=== PATIENT | male | born 1990 | race Caucasian/White ===

== ENCOUNTER 2025-03-08 21:24 | Emergency (ER) | payer MEDICAID, OTHER ==
[~2025-03-08] VITALS: Ht 175.3 cm; Wt 97.5 kg
[2025-03-08] MEDS ORDERED: MORPHINE SULFATE INJ 4 MG/ML DISP.SYRIN ONE (21:47)
[2025-03-08] MEDS ORDERED: ONDANSETRON HCL/PF 4 MG/2 ML VIAL ONE (21:47)
[2025-03-08] MEDS: ONDANSETRON HCL/PF 4 MG/2 ML VIAL IV ONE (21:49)
[2025-03-08] MEDS: MORPHINE SULFATE INJ 2 MG/ML DISP.SYRIN IV ONE (21:49)
[2025-03-08] MEDS: IV NS 0.9% 1,000 ML BAG IV ONE (21:49)
[2025-03-08 22:21] LABS: BASOPHILS % (AUTO) 0.2 % (0.0-2.0); EOSINOPHILS % (AUTO) 0.2 % (0.0-6.0); HEMATOCRIT 45 % (39-51); HEMOGLOBIN 15.1 g/dL (13.5-17.5); LYMPHOCYTES # (AUTO) 2.8 K/uL (0.8-4.8); MEAN CORPUSCULAR HEMOGLOBIN 30 PG (26.0-33.0); MEAN CORPUSCULAR HGB CONC 34 g/dl (31.0-36.0); MEAN CORPUSCULAR VOLUME 90 fL (80-96); MONOCYTES # (AUTO) 0.9 K/uL (0.1-1.30); NEUTROPHILS # (AUTO) 17.8 K/uL (1.8-8.9); NEUTROPHILS % (AUTO) 82.6 % (43.0-81.0); PLATELET COUNT (AUTO) 338 K/uL (150-450); RED BLOOD CELL COUNT(AUTO) 4.99 MIL/uL (4.5-6.0); RED CELL DISTRIBUTION WIDTH 13.3 % (11.5-15.0); WHITE BLOOD COUNT (AUTO) 21.6 K/uL (4.3-11.0)
[2025-03-08 22:25] LABS: CALCIUM, SERUM 9.9 mg/dL (8.5-10.1); POTASSIUM 3.5 mmol/L (3.5-5.1)
[2025-03-08 22:31] LABS: ALBUMIN 4.4 g/dL (3.4-5.0); BILIRUBIN,DIRECT 0.1 mg/dL (0.0-0.2); BILIRUBIN,TOTAL 0.5 mg/dL (0.2-1.0); TOTAL PROTEIN, SERUM 8.4 g/dL (6.4-8.2)
[2025-03-08] MEDS ORDERED: DICYCLOMINE HCL 10 MG CAPSULE PO ONE (22:43)
[2025-03-08] MEDS ORDERED: KETOROLAC TROMETHAMINE 15 MG/ML VIAL ONE (22:43)
[2025-03-08] MEDS ORDERED: FAMOTIDINE/PF INJ 20 MG/2 ML VIAL IV ONE (22:44)
[2025-03-08] MEDS: DICYCLOMINE HCL 10 MG CAPSULE PO ONE (22:46)
[2025-03-08] MEDS: KETOROLAC TROMETHAMINE 15 MG/ML VIAL IV ONE (22:46)
[2025-03-08] MEDS: FAMOTIDINE/PF INJ 20 MG/2 ML VIAL IV ONE (22:46)
[2025-03-09] MEDS ORDERED: PANT40TA49 PO (00:15)
[2025-03-09] MEDS ORDERED: ONDA4TAB5 PO (00:15)
[2025-03-09] MEDS ORDERED: DICY10CA37 PO (00:15)
[2025-03-09] MEDS ORDERED: AMOX-430 PO (00:15)
[2025-03-09 00:43] VITALS: BP 114/65; TEMP 98; O2SAT 98
== END 2025-03-09 00:49 | disposition home or self-care (01) ==
LOC: ER 21:26
DX: R10.33 Periumbilical pain (principal); R11.2 Nausea with vomiting, unspecified; Z60.2 Problems related to living alone
CPT/HCPCS: 99285; 96374; 96361; 96375; 74176; 85025; 80048; 83690; 80076; 36415; J2270; J1308; J2405; J7030; J1885

== ENCOUNTER 2025-03-10 12:36 | Inpatient (IN) | payer OTHER, MEDICAID ==
[~2025-03-10] VITALS: Ht 175.3 cm; Wt 88.9 kg
[~2025-03-10 12:36] MED LIST: AMOX-430 PO; DICY10CA37 PO; ONDA4TAB5 PO; PANT40TA49 PO
[2025-03-10] MEDS ORDERED: KETOROLAC TROMETHAMINE 15 MG/ML VIAL ONE (12:57)
[2025-03-10] MEDS ORDERED: ONDANSETRON HCL/PF 4 MG/2 ML VIAL ONE (12:57)
[2025-03-10] MEDS: IV NS 0.9% 1,000 ML BAG IV ONE (13:00)
[2025-03-10] MEDS: ONDANSETRON HCL/PF 4 MG/2 ML VIAL IVP ONE (13:00)
[2025-03-10] MEDS: MORPHINE SULFATE INJ 2 MG/ML DISP.SYRIN IV ONE (13:00)
[2025-03-10] MEDS: KETOROLAC TROMETHAMINE 15 MG/ML VIAL IV ONE (13:00)
[2025-03-10 13:09] LABS: BASOPHILS # (AUTO) 0.1 K/uL (0.0-0.2); BASOPHILS % (AUTO) 0.5 % (0.0-2.0); EOSINOPHILS % (AUTO) 0.1 % (0.0-6.0); HEMATOCRIT 44 % (39-51); HEMOGLOBIN 15.2 g/dL (13.5-17.5); LYMPHOCYTES # (AUTO) 1.7 K/uL (0.8-4.8); LYMPHOCYTES % (AUTO) 8.9 % (20.0-44.0); MEAN CORPUSCULAR HEMOGLOBIN 31 PG (26.0-33.0); MEAN CORPUSCULAR HGB CONC 35 g/dl (31.0-36.0); MEAN CORPUSCULAR VOLUME 90 fL (80-96); MONOCYTES # (AUTO) 1.4 K/uL (0.1-1.30); MONOCYTES % (AUTO) 6.9 % (2.0-12.0); NEUTROPHILS # (AUTO) 16.5 K/uL (1.8-8.9); NEUTROPHILS % (AUTO) 83.6 % (43.0-81.0); PLATELET COUNT (AUTO) 299 K/uL (150-450); RED BLOOD CELL COUNT(AUTO) 4.88 MIL/uL (4.5-6.0); RED CELL DISTRIBUTION WIDTH 13.3 % (11.5-15.0); WHITE BLOOD COUNT (AUTO) 19.7 K/uL (4.3-11.0)
[2025-03-10] MEDS ORDERED: MORPHINE SULFATE INJ 4 MG/ML DISP.SYRIN ONE (13:10)
[2025-03-10 13:24] LABS: CALCIUM, SERUM 9.9 mg/dL (8.5-10.1); CREATININE 1.1 mg/dL (0.6-1.3); POTASSIUM 3.6 mmol/L (3.5-5.1)
[2025-03-10 13:30] LABS: BILIRUBIN,DIRECT 0.5 mg/dL (0.0-0.2); BILIRUBIN,TOTAL 1.6 mg/dL (0.2-1.0); TOTAL PROTEIN, SERUM 8.5 g/dL (6.4-8.2)
[2025-03-10] MEDS: PIPERACILLIN /TAZOBACTAM 3.375 G in IV D5W 50 ML IV ONE (14:00)
[2025-03-10] MEDS ORDERED: PIPERACI/TAZO 3.375GM/D5W 50ML PB IV ONE (14:08)
[2025-03-10] MEDS ORDERED: MAGNESIUM HYDROXIDE 30 ML UDC PO PRN (14:30)
[2025-03-10] MEDS: ENOXAPARIN SODIUM 40 MG/0.4 ML DISP.SYRIN SQ SCH (14:30)
[2025-03-10] MEDS ORDERED: Z GUARD REMEDY 4 OZ OINT TP PRN (14:30)
[2025-03-10] MEDS ORDERED: MAG HYDROX/AL HYDROX/SIMETH 30 ML UDC PO PRN (14:30)
[2025-03-10 16:00] VITALS: BP 137/78; TEMP 102; O2SAT 98
[2025-03-10] MEDS: MORPHINE SULFATE INJ 2 MG/ML DISP.SYRIN IV PRN (16:03)
[2025-03-10] MEDS: IV NS 0.9% 1,000 ML IV PRN (16:06)
[2025-03-10] MEDS: PANTOPRAZOLE 40 MG VIAL IV SCH (16:09)
[2025-03-10] MEDS: ACETAMINOPHEN 650 MG/SUPP.RECT RC PRN (16:50)
[2025-03-10 17:16] LABS: INR 1.06 (0.91-1.10); PARTIAL THROMBOPLASTIN TIME 30.5 SEC (24.3-34.3); PROTHROMBIN TIME 11.2 SECS (9.2-11.1)
[2025-03-10] MEDS: HYDROMORPHONE 1 MG/1 ML DISP.SYRIN IV PRN (20:45)
[2025-03-10 21:00] VITALS: BP 136/85; TEMP 101.5; O2SAT 99
[2025-03-10] MEDS: PIPERACILLIN /TAZOBACTAM 3.375 G in IV D5W 50 ML IV SCH (21:48)
[2025-03-11] MEDS: IV LR 1000 ML 1,000 ML BAG IV ONE (01:24)
[2025-03-11 05:00] VITALS: BP 112/67; TEMP 100.6; O2SAT 100
[2025-03-11 08:00] VITALS: BP 111/73; TEMP 97.9; O2SAT 98
[2025-03-11 10:13] LABS: CALCIUM, SERUM 8.6 mg/dL (8.5-10.1); CREATININE 1.2 mg/dL (0.6-1.3); MAGNESIUM 1.9 mg/dL (1.8-2.4); PHOSPHORUS 2.5 mg/dL (2.5-4.9); POTASSIUM 3.9 mmol/L (3.5-5.1)
[2025-03-11 10:21] VITALS: BP 131/84; TEMP 98.8
[2025-03-11 10:34] LABS: BASOPHILS % (AUTO) 0.1 % (0.0-2.0); HEMATOCRIT 41 % (39-51); LYMPHOCYTES # (AUTO) 0.8 K/uL (0.8-4.8); LYMPHOCYTES % (AUTO) 8.7 % (20.0-44.0); MEAN CORPUSCULAR HEMOGLOBIN 31 PG (26.0-33.0); MEAN CORPUSCULAR HGB CONC 34 g/dl (31.0-36.0); MEAN CORPUSCULAR VOLUME 92 fL (80-96); MONOCYTES # (AUTO) 0.6 K/uL (0.1-1.30); MONOCYTES % (AUTO) 6.6 % (2.0-12.0); NEUTROPHILS # (AUTO) 8.1 K/uL (1.8-8.9); NEUTROPHILS % (AUTO) 84.6 % (43.0-81.0); PLATELET COUNT (AUTO) 236 K/uL (150-450); RED BLOOD CELL COUNT(AUTO) 4.51 MIL/uL (4.5-6.0); RED CELL DISTRIBUTION WIDTH 13.3 % (11.5-15.0); WHITE BLOOD COUNT (AUTO) 9.6 K/uL (4.3-11.0)
[2025-03-11] MEDS: IV D5/0.45 NACL 1,000 ML IV SCH (12:01)
[2025-03-11] MEDS: PIPERACILLIN /TAZOBACTAM 3.375 G in IV D5W 100 ML IV SCH (13:08)
[2025-03-11] MEDS: ONDANSETRON HCL/PF 4 MG/2 ML VIAL IVP PRN (14:16)
[2025-03-11 14:25] VITALS: BP 133/88; TEMP 98; O2SAT 99
[2025-03-11 16:00] VITALS: BP 127/90; TEMP 101.5; O2SAT 97
[2025-03-11] MEDS: ACETAMINOPHEN 325 MG TABLET PO PRN (16:23)
[2025-03-11] MEDS ORDERED: CT SWABBABLE VALVE TRANS SET 1 EA INFUS.SET MC ONE (19:18)
[2025-03-11] MEDS ORDERED: IOHEXOL-300 100 ML VIAL IV ONE (19:18)
[2025-03-11] MEDS ORDERED: IV NS 0.9% 250 ML IV ONE (19:19)
[2025-03-11 19:51] LABS: BASOPHILS % (AUTO) 0.1 % (0.0-2.0); HEMATOCRIT 41 % (39-51); LYMPHOCYTES # (AUTO) 0.8 K/uL (0.8-4.8); LYMPHOCYTES % (AUTO) 6.3 % (20.0-44.0); MEAN CORPUSCULAR HEMOGLOBIN 31 PG (26.0-33.0); MEAN CORPUSCULAR HGB CONC 34 g/dl (31.0-36.0); MEAN CORPUSCULAR VOLUME 91 fL (80-96); MONOCYTES # (AUTO) 0.8 K/uL (0.1-1.30); MONOCYTES % (AUTO) 6.8 % (2.0-12.0); NEUTROPHILS # (AUTO) 10.6 K/uL (1.8-8.9); NEUTROPHILS % (AUTO) 86.8 % (43.0-81.0); PLATELET COUNT (AUTO) 236 K/uL (150-450); RED BLOOD CELL COUNT(AUTO) 4.49 MIL/uL (4.5-6.0); RED CELL DISTRIBUTION WIDTH 13.6 % (11.5-15.0); WHITE BLOOD COUNT (AUTO) 12.3 K/uL (4.3-11.0)
[2025-03-11 20:00] VITALS: BP 140/78; TEMP 97.9; O2SAT 97
[2025-03-11 20:16] LABS: CALCIUM, SERUM 9.3 mg/dL (8.5-10.1); POTASSIUM 4.2 mmol/L (3.5-5.1)
[2025-03-11] MEDS ORDERED: IV D5/ 0.9% NACL 1,000 ML IV PRN (20:30)
[2025-03-11] MEDS: HYDROMORPHONE 1 MG/1 ML DISP.SYRIN IV PRN (20:59)
[2025-03-11] MEDS: MEROPENEM 500 MG in IV NS 0.9% 50 ML IV SCH (21:10)
[2025-03-11] MEDS: FLUCONAZOLE IN NS,PREMIX 200 MG in PREMIX 1 EA IV SCH (21:39)
[2025-03-11] MEDS ORDERED: ROCURONIUM BROMIDE 50 MG/5 ML ONE (21:45)
[2025-03-11] MEDS ORDERED: FENTANYL PF 100MCG/2ML AMPUL ONE (21:45)
[2025-03-11] MEDS ORDERED: MIDAZOLAM HCL 2 MG/2ML VIAL ONE (21:45)
[2025-03-11] MEDS ORDERED: ANESTHESIA TRAY IN PYXIS 1 EA TRAY MC ONE (21:47)
[2025-03-11] MEDS ORDERED: HYDROMORPHONE INJ 2 MG/ML DISP.SYRIN ONE (21:55)
[2025-03-11] MEDS: VANCOMYCIN 1 GM in IV D5W 250ml IV ONE ×2 (21:55→22:53)
[2025-03-12] VITALS (27 sets, daily range): BP systolic 113–151; BP diastolic 68–99; TEMP 98.8–100.5; O2SAT 90–99
[2025-03-12] MEDS: IV NS 0.9% 1,000 ML IV PRN (01:57)
[2025-03-12] MEDS ORDERED: ACETAMINOPHEN 650 MG/SUPP.RECT RC PRN (02:00)
[2025-03-12] MEDS: HYDROMORPHONE 1 MG/1 ML DISP.SYRIN IV PRN (02:21)
[2025-03-12 07:38] LABS: BASOPHILS % (AUTO) 0.1 % (0.0-2.0); HEMATOCRIT 51 % (39-51); HEMOGLOBIN 16.7 g/dL (13.5-17.5); LYMPHOCYTES # (AUTO) 0.7 K/uL (0.8-4.8); LYMPHOCYTES % (AUTO) 5.2 % (20.0-44.0); MEAN CORPUSCULAR HEMOGLOBIN 30 PG (26.0-33.0); MEAN CORPUSCULAR HGB CONC 33 g/dl (31.0-36.0); MEAN CORPUSCULAR VOLUME 93 fL (80-96); MONOCYTES # (AUTO) 0.9 K/uL (0.1-1.30); MONOCYTES % (AUTO) 7.1 % (2.0-12.0); NEUTROPHILS % (AUTO) 87.6 % (43.0-81.0); PLATELET COUNT (AUTO) 252 K/uL (150-450); RED BLOOD CELL COUNT(AUTO) 5.54 MIL/uL (4.5-6.0); WHITE BLOOD COUNT (AUTO) 12.5 K/uL (4.3-11.0)
[2025-03-12 08:04] LABS: CALCIUM, SERUM 8.4 mg/dL (8.5-10.1); CREATININE 1.8 mg/dL (0.6-1.3); POTASSIUM 4.2 mmol/L (3.5-5.1)
[2025-03-12] MEDS: VANCOMYCIN HCL 1.25 GM in IV D5W 250 ML IV SCH (08:35)
[2025-03-12] MEDS ORDERED: DEXTROSE 50%-WATER 50 ML DISP.SYRIN IV PRN (11:00)
[2025-03-12] MEDS: BLOOD SUGAR DIAGNOSTIC 1 EACH STRIP IN SCH (11:49)
[2025-03-12 18:31] LABS: APPEARANCE,URINE CLOUDY (CLEAR)
[2025-03-12 18:32] LABS: COLOR,URINE ORANGE (YELLOW)
[2025-03-12 18:41] LABS: BACTERIA,URINE 1+ /HPF (None Seen); FINE GRANULAR CASTS,URINE Many /LPF (None Seen); SQUAMOUS EPITHELIAL CELL,UR 0-2 /HPF (None Seen)
[2025-03-12 18:42] LABS: URINE AMORPHOUS URATE Many /HPF (None Seen)
[2025-03-12 18:45] LABS: EOSINOPHIL,URINE None Seen
[2025-03-12 20:10] LABS: CREATININE, URINE 365.1 MG/DL (30.0-125.0); URINE TOTAL PROTEIN 471.6 mg/dL (0-11.9)
[2025-03-12] MEDS: VANCOMYCIN 1 GM in IV D5W 250 ML IV SCH (22:53)
[2025-03-13] VITALS (19 sets, daily range): BP systolic 119–145; BP diastolic 70–90; TEMP 98.5–99.8; O2SAT 91–100
[2025-03-13] MEDS: INSULIN REGULAR, HUMAN 100 UNIT/ML 3 ML VIAL SQ PRN (01:22)
[2025-03-13] MEDS: diphenhydrAMINE HCL 50 MG/ML VIAL IV ONE (03:45)
[2025-03-13 04:29] LABS: BASOPHILS # (AUTO) 0.1 K/uL (0.0-0.2); BASOPHILS % (AUTO) 0.5 % (0.0-2.0); HEMATOCRIT 36 % (39-51); HEMOGLOBIN 12.2 g/dL (13.5-17.5); LYMPHOCYTES # (AUTO) 0.9 K/uL (0.8-4.8); LYMPHOCYTES % (AUTO) 8.3 % (20.0-44.0); MEAN CORPUSCULAR HEMOGLOBIN 31 PG (26.0-33.0); MEAN CORPUSCULAR HGB CONC 34 g/dl (31.0-36.0); MEAN CORPUSCULAR VOLUME 92 fL (80-96); MONOCYTES # (AUTO) 0.8 K/uL (0.1-1.30); MONOCYTES % (AUTO) 7.4 % (2.0-12.0); NEUTROPHILS # (AUTO) 9.6 K/uL (1.8-8.9); NEUTROPHILS % (AUTO) 83.8 % (43.0-81.0); PLATELET COUNT (AUTO) 275 K/uL (150-450); RED BLOOD CELL COUNT(AUTO) 3.96 MIL/uL (4.5-6.0); RED CELL DISTRIBUTION WIDTH 13.7 % (11.5-15.0); WHITE BLOOD COUNT (AUTO) 11.4 K/uL (4.3-11.0)
[2025-03-13 04:59] LABS: ALBUMIN 1.8 g/dL (3.4-5.0); BILIRUBIN,TOTAL 3.1 mg/dL (0.2-1.0); CALCIUM, SERUM 8.5 mg/dL (8.5-10.1); MAGNESIUM 2.5 mg/dL (1.8-2.4); PHOSPHORUS 1.4 mg/dL (2.5-4.9); POTASSIUM 3.8 mmol/L (3.5-5.1); TOTAL PROTEIN, SERUM 6.4 g/dL (6.4-8.2)
[2025-03-13] MEDS: HYDROMORPHONE 1 MG/1 ML DISP.SYRIN IV PRN (12:57)
[2025-03-13] MEDS: VANCOMYCIN 1 GM in IV D5W 250 ML IV SCH (16:34)
[2025-03-13] MEDS: Sodium Phosphate 15 MMOL in IV NS 0.9% 245 ML IV SCH (16:42)
[2025-03-13] MEDS: METOCLOPRAMIDE HCL 10 MG/2 ML VIAL IV SCH (22:53)
[2025-03-13] MEDS ORDERED: METOCLOPRAMIDE HCL 10 MG/2 ML VIAL IV SCH (23:00)
[2025-03-14] VITALS (13 sets, daily range): BP systolic 124–146; BP diastolic 60–99; TEMP 97.5–101.1; O2SAT 93–100
[2025-03-14 06:28] LABS: BASOPHILS % (AUTO) 0.3 % (0.0-2.0); EOSINOPHILS # (AUTO) 0.1 K/uL (0.0-0.7); EOSINOPHILS % (AUTO) 0.8 % (0.0-6.0); HEMATOCRIT 33 % (39-51); HEMOGLOBIN 11.1 g/dL (13.5-17.5); LYMPHOCYTES % (AUTO) 8.5 % (20.0-44.0); MEAN CORPUSCULAR HEMOGLOBIN 31 PG (26.0-33.0); MEAN CORPUSCULAR HGB CONC 34 g/dl (31.0-36.0); MEAN CORPUSCULAR VOLUME 91 fL (80-96); MONOCYTES # (AUTO) 0.9 K/uL (0.1-1.30); MONOCYTES % (AUTO) 8.3 % (2.0-12.0); NEUTROPHILS # (AUTO) 9.3 K/uL (1.8-8.9); NEUTROPHILS % (AUTO) 82.1 % (43.0-81.0); PLATELET COUNT (AUTO) 315 K/uL (150-450); WHITE BLOOD COUNT (AUTO) 11.3 K/uL (4.3-11.0)
[2025-03-14 06:48] LABS: CALCIUM, SERUM 8.6 mg/dL (8.5-10.1); CREATININE 0.8 mg/dL (0.6-1.3); POTASSIUM 3.2 mmol/L (3.5-5.1)
[2025-03-14] MEDS: KETOROLAC TROMETHAMINE INJ 30 MG/ML VIAL IM PRN (08:27)
[2025-03-14] MEDS: POTASSIUM PHOSPHATE MM 7.5 MMOL in IV NS 0.9% 100 ML IV SCH (08:47)
[2025-03-14 11:12] LABS: PTH, INTACT 59 pg/mL (15-65)
[2025-03-14] MEDS: VANCOMYCIN 500 MG in IV D5W 100ml IV ONE (11:30)
[2025-03-14] MEDS: MEROPENEM 1 G in IV NS 0.9% 100 ML IV SCH (13:26)
[2025-03-14] MEDS: POTASSIUM CL. PREMIX PERIPHER. 50 ML IV SCH (14:13)
[2025-03-14] MEDS: ALBUTEROL HALF STRENGTH 1.25 MG/3 ML VIAL.NEB NEB SCH (16:14)
[2025-03-14] MEDS: IPRATROPIUM NEB FS 0.5 MG/2.5 ML AMPUL.NEB NEB SCH (16:14)
[2025-03-14] MEDS: VANCOMYCIN 750 MG in IV D5W 250 ML IV SCH ×2 (16:29→17:44)
[2025-03-14] MEDS: Sodium Phosphate 15 MMOL in IV NS 0.9% 245 ML IV SCH (17:54)
[2025-03-14] MEDS: diphenhydrAMINE HCL 50 MG/ML VIAL IV PRN (20:47)
[2025-03-14] MEDS: LORAZEPAM INJ 2 MG/ML VIAL IV PRN (23:20)
[2025-03-15] VITALS (14 sets, daily range): BP systolic 121–142; BP diastolic 73–94; TEMP 98.4–99.5; O2SAT 96–100
[2025-03-15 00:59] LABS: BASOPHILS # (AUTO) 0.1 K/uL (0.0-0.2); BASOPHILS % (AUTO) 0.6 % (0.0-2.0); EOSINOPHILS # (AUTO) 0.1 K/uL (0.0-0.7); EOSINOPHILS % (AUTO) 1.1 % (0.0-6.0); HEMATOCRIT 33 % (39-51); HEMOGLOBIN 11.4 g/dL (13.5-17.5); LYMPHOCYTES # (AUTO) 1.3 K/uL (0.8-4.8); LYMPHOCYTES % (AUTO) 12.2 % (20.0-44.0); MEAN CORPUSCULAR HEMOGLOBIN 31 PG (26.0-33.0); MEAN CORPUSCULAR HGB CONC 35 g/dl (31.0-36.0); MEAN CORPUSCULAR VOLUME 90 fL (80-96); MONOCYTES # (AUTO) 1.1 K/uL (0.1-1.30); MONOCYTES % (AUTO) 9.8 % (2.0-12.0); NEUTROPHILS # (AUTO) 8.5 K/uL (1.8-8.9); NEUTROPHILS % (AUTO) 76.3 % (43.0-81.0); PLATELET COUNT (AUTO) 367 K/uL (150-450); RED BLOOD CELL COUNT(AUTO) 3.68 MIL/uL (4.5-6.0); RED CELL DISTRIBUTION WIDTH 14.2 % (11.5-15.0); WHITE BLOOD COUNT (AUTO) 11.1 K/uL (4.3-11.0)
[2025-03-15 01:52] LABS: EOSINOPHILS % (MANUAL) 1 % (0-4); LYMPHOCYTES % (MANUAL) 12 % (16-48); MONOCYTES % (MANUAL) 9 % (0-11.0); NEUTROPHILS % (MANUAL) 78 (42-76); PLATELET ESTIMATE ADEQUATE
[2025-03-15 01:57] LABS: TARGET CELLS FEW
[2025-03-15 07:28] LABS: BASOPHILS % (AUTO) 0.4 % (0.0-2.0); EOSINOPHILS # (AUTO) 0.2 K/uL (0.0-0.7); EOSINOPHILS % (AUTO) 1.6 % (0.0-6.0); HEMATOCRIT 33 % (39-51); HEMOGLOBIN 11.2 g/dL (13.5-17.5); LYMPHOCYTES # (AUTO) 1.1 K/uL (0.8-4.8); LYMPHOCYTES % (AUTO) 11.1 % (20.0-44.0); MEAN CORPUSCULAR HEMOGLOBIN 31 PG (26.0-33.0); MEAN CORPUSCULAR HGB CONC 34 g/dl (31.0-36.0); MEAN CORPUSCULAR VOLUME 89 fL (80-96); MONOCYTES # (AUTO) 1.1 K/uL (0.1-1.30); MONOCYTES % (AUTO) 10.8 % (2.0-12.0); NEUTROPHILS # (AUTO) 7.8 K/uL (1.8-8.9); NEUTROPHILS % (AUTO) 76.1 % (43.0-81.0); PLATELET COUNT (AUTO) 372 K/uL (150-450); RED BLOOD CELL COUNT(AUTO) 3.65 MIL/uL (4.5-6.0); RED CELL DISTRIBUTION WIDTH 14.2 % (11.5-15.0); WHITE BLOOD COUNT (AUTO) 10.3 K/uL (4.3-11.0)
[2025-03-15 08:18] LABS: ALBUMIN 1.8 g/dL (3.4-5.0); BILIRUBIN,TOTAL 2.8 mg/dL (0.2-1.0); CALCIUM, SERUM 8.6 mg/dL (8.5-10.1); CREATININE 0.8 mg/dL (0.6-1.3); MAGNESIUM 2.4 mg/dL (1.8-2.4); PHOSPHORUS 3.6 mg/dL (2.5-4.9); TOTAL PROTEIN, SERUM 6.2 g/dL (6.4-8.2)
[2025-03-15] MEDS: PANTOPRAZOLE 40 MG VIAL IV SCH (08:44)
[2025-03-15 10:56] LABS: BAND % (MANUAL) 1 % (0.0-5.0); EOSINOPHILS % (MANUAL) 2 % (0-4); LYMPHOCYTES % (MANUAL) 8 % (16-48); MONOCYTES % (MANUAL) 2 % (0-11.0); MYELOCYTES % 1 % (0-0); NEUTROPHILS % (MANUAL) 86 (42-76); PLATELET ESTIMATE ADEQUATE
[2025-03-15 10:57] LABS: STOMATOCYTES 1+
[2025-03-15] MEDS: POTASSIUM CL. PREMIX PERIPHER. 50 ML IV SCH (12:06)
[2025-03-15] MEDS ORDERED: ENSURE ENLIVE 237 ML LIQUID (VANILLA) PO SCH (13:30)
[2025-03-15] MEDS: ZINC SULFATE 220 MG CAPSULE PO SCH (13:56)
[2025-03-15] MEDS: ENSURE ENLIVE 237 ML LIQUID (VANILLA) PO SCH (17:02)
[2025-03-16] VITALS (7 sets, daily range): BP systolic 122–134; BP diastolic 78–92; TEMP 98.2–99.7; O2SAT 97–99
[2025-03-16 07:01] LABS: CALCIUM, SERUM 8.2 mg/dL (8.5-10.1); CREATININE 0.9 mg/dL (0.6-1.3); POTASSIUM 3.4 mmol/L (3.5-5.1)
[2025-03-16 07:03] LABS: BASOPHILS % (AUTO) 0.3 % (0.0-2.0); EOSINOPHILS # (AUTO) 0.4 K/uL (0.0-0.7); HEMATOCRIT 35 % (39-51); HEMOGLOBIN 11.8 g/dL (13.5-17.5); LYMPHOCYTES # (AUTO) 1.6 K/uL (0.8-4.8); LYMPHOCYTES % (AUTO) 15.4 % (20.0-44.0); MEAN CORPUSCULAR HEMOGLOBIN 31 PG (26.0-33.0); MEAN CORPUSCULAR HGB CONC 34 g/dl (31.0-36.0); MEAN CORPUSCULAR VOLUME 91 fL (80-96); MONOCYTES % (AUTO) 9.8 % (2.0-12.0); NEUTROPHILS # (AUTO) 7.4 K/uL (1.8-8.9); NEUTROPHILS % (AUTO) 70.5 % (43.0-81.0); PLATELET COUNT (AUTO) 442 K/uL (150-450); RED BLOOD CELL COUNT(AUTO) 3.82 MIL/uL (4.5-6.0); RED CELL DISTRIBUTION WIDTH 14.3 % (11.5-15.0); WHITE BLOOD COUNT (AUTO) 10.4 K/uL (4.3-11.0)
[2025-03-16 08:46] LABS: EOSINOPHILS % (MANUAL) 3 % (0-4); LYMPHOCYTES % (MANUAL) 8 % (16-48); MONOCYTES % (MANUAL) 4 % (0-11.0); NEUTROPHILS % (MANUAL) 85 (42-76); PLATELET ESTIMATE ADEQUATE
[2025-03-16] MEDS: ASCORBIC ACID 500 MG TABLET PO SCH (09:43)
[2025-03-16] MEDS: POTASSIUM CHLORIDE 20 MEQ TAB.PRT.SR PO SCH (10:52)
[2025-03-16] MEDS: FLUCONAZOLE (100 MG) 100 MG TABLET PO SCH (22:16)
[2025-03-16] MEDS: PANTOPRAZOLE 40 MG TABLET.DR PO SCH (22:17)
[2025-03-17 04:00] VITALS: BP 125/74; TEMP 98.4; O2SAT 100
[2025-03-17 07:54] LABS: BASOPHILS % (AUTO) 0.3 % (0.0-2.0); EOSINOPHILS # (AUTO) 0.4 K/uL (0.0-0.7); EOSINOPHILS % (AUTO) 3.7 % (0.0-6.0); HEMATOCRIT 32 % (39-51); HEMOGLOBIN 10.9 g/dL (13.5-17.5); LYMPHOCYTES # (AUTO) 1.6 K/uL (0.8-4.8); LYMPHOCYTES % (AUTO) 16.3 % (20.0-44.0); MEAN CORPUSCULAR HEMOGLOBIN 31 PG (26.0-33.0); MEAN CORPUSCULAR HGB CONC 34 g/dl (31.0-36.0); MEAN CORPUSCULAR VOLUME 90 fL (80-96); MONOCYTES # (AUTO) 0.8 K/uL (0.1-1.30); MONOCYTES % (AUTO) 8.4 % (2.0-12.0); NEUTROPHILS % (AUTO) 71.3 % (43.0-81.0); PLATELET COUNT (AUTO) 439 K/uL (150-450); RED BLOOD CELL COUNT(AUTO) 3.52 MIL/uL (4.5-6.0); RED CELL DISTRIBUTION WIDTH 14.2 % (11.5-15.0); WHITE BLOOD COUNT (AUTO) 9.8 K/uL (4.3-11.0)
[2025-03-17 08:00] VITALS: BP 129/73; TEMP 98.4; O2SAT 100
[2025-03-17 08:30] LABS: CALCIUM, SERUM 7.9 mg/dL (8.5-10.1); CREATININE 0.9 mg/dL (0.6-1.3); POTASSIUM 3.1 mmol/L (3.5-5.1)
[2025-03-17] MEDS: POTASSIUM CHLORIDE 20 MEQ TAB.PRT.SR PO SCH (10:20)
[2025-03-17 12:00] VITALS: BP 129/73; TEMP 98.4; O2SAT 100
[2025-03-17 17:03] LABS: ANISOCYTOSIS 1+; EOSINOPHILS % (MANUAL) 3 % (0-4); LYMPHOCYTES % (MANUAL) 17 % (16-48); MONOCYTES % (MANUAL) 5 % (0-11.0); NEUTROPHILS % (MANUAL) 75 (42-76); PLATELET ESTIMATE ADEQUATE
[2025-03-17 19:53] VITALS: O2SAT 97
[2025-03-17 20:00] VITALS: BP 135/80; TEMP 98.4; O2SAT 98
[2025-03-18 04:00] VITALS: BP 126/82; TEMP 98.6; O2SAT 97
[2025-03-18 06:57] LABS: ALBUMIN 1.7 g/dL (3.4-5.0); BILIRUBIN,TOTAL 0.9 mg/dL (0.2-1.0); CALCIUM, SERUM 8.2 mg/dL (8.5-10.1); CREATININE 0.7 mg/dL (0.6-1.3); MAGNESIUM 2.1 mg/dL (1.8-2.4); PHOSPHORUS 3.2 mg/dL (2.5-4.9); POTASSIUM 3.2 mmol/L (3.5-5.1); TOTAL PROTEIN, SERUM 5.6 g/dL (6.4-8.2)
[2025-03-18 07:16] LABS: BASOPHILS % (AUTO) 0.3 % (0.0-2.0); EOSINOPHILS # (AUTO) 0.3 K/uL (0.0-0.7); EOSINOPHILS % (AUTO) 3.3 % (0.0-6.0); HEMATOCRIT 34 % (39-51); HEMOGLOBIN 11.4 g/dL (13.5-17.5); LYMPHOCYTES # (AUTO) 1.5 K/uL (0.8-4.8); LYMPHOCYTES % (AUTO) 14.5 % (20.0-44.0); MEAN CORPUSCULAR HEMOGLOBIN 31 PG (26.0-33.0); MEAN CORPUSCULAR HGB CONC 34 g/dl (31.0-36.0); MEAN CORPUSCULAR VOLUME 91 fL (80-96); MONOCYTES # (AUTO) 0.7 K/uL (0.1-1.30); MONOCYTES % (AUTO) 6.5 % (2.0-12.0); NEUTROPHILS # (AUTO) 7.8 K/uL (1.8-8.9); NEUTROPHILS % (AUTO) 75.4 % (43.0-81.0); PLATELET COUNT (AUTO) 451 K/uL (150-450); RED BLOOD CELL COUNT(AUTO) 3.72 MIL/uL (4.5-6.0); RED CELL DISTRIBUTION WIDTH 13.7 % (11.5-15.0); WHITE BLOOD COUNT (AUTO) 10.3 K/uL (4.3-11.0)
[2025-03-18 09:51] LABS: EOSINOPHILS % (MANUAL) 3 % (0-4); LYMPHOCYTES % (MANUAL) 12 % (16-48); MONOCYTES % (MANUAL) 6 % (0-11.0); NEUTROPHILS % (MANUAL) 79 (42-76); PLATELET ESTIMATE INCREASED; STOMATOCYTES 1+
[2025-03-18] MEDS: POTASSIUM CHLORIDE 20 MEQ TAB.PRT.SR PO SCH (11:58)
[2025-03-18 12:00] VITALS: BP 126/82; TEMP 98.6; O2SAT 97
[2025-03-18] MEDS ORDERED: DOCU-141 PO (13:05)
[2025-03-18] MEDS ORDERED: AMOX-430 PO (13:05)
[2025-03-18] MEDS ORDERED: ASCO500T21 PO (13:05)
[2025-03-18] MEDS ORDERED: PANT40TA49 PO (13:05)
[2025-03-18] MEDS ORDERED: HYDR-3980 PO (13:05)
[2025-03-18] MEDS ORDERED: IBUP-1953 PO (13:05)
[2025-03-18] MEDS ORDERED: ONDA4TAB5 PO (13:05)
[2025-03-18 19:53] VITALS: O2SAT 98
[2025-03-18 20:00] VITALS: BP 132/67; TEMP 99.3; O2SAT 99
[2025-03-19] VITALS (8 sets, daily range): BP systolic 117–130; BP diastolic 67–77; TEMP 97.9–98.6; O2SAT 96–98
[2025-03-19 07:06] LABS: MAGNESIUM 2.2 mg/dL (1.8-2.4); PHOSPHORUS 3.3 mg/dL (2.5-4.9)
[2025-03-19 07:35] LABS: CALCIUM, SERUM 8.1 mg/dL (8.5-10.1); CREATININE 0.8 mg/dL (0.6-1.3); POTASSIUM 3.6 mmol/L (3.5-5.1)
[2025-03-19] MEDS: oxyCODONE IR immediate release 5 MG TABLET PO PRN (14:05)
[2025-03-19 15:07] LABS: *SPE A/G RATIO 0.6 (0.7-1.7); *SPE ALPHA-1-GLOBULIN 0.7 g/dL (0.0-0.4); *SPE ALPHA-2-GLOBULIN 1.2 g/dL (0.4-1.0); *SPE GLOBULIN, TOTAL 3.4 g/dL (2.2-3.9); *SPE M-SPIKE Not Observed g/dL (Not Observed); *SPE PROTEIN TOTAL 5.4 g/dL (6.0-8.5); *SPEGAMMA GLOBULIN 0.5 g/dL (0.4-1.8)
[2025-03-20 04:00] VITALS: BP 121/69; TEMP 98.1
[2025-03-20 08:00] VITALS: BP 129/82; TEMP 98.4; O2SAT 100
[2025-03-20 08:12] LABS: CALCIUM, SERUM 8.4 mg/dL (8.5-10.1); CREATININE 0.7 mg/dL (0.6-1.3); POTASSIUM 3.9 mmol/L (3.5-5.1)
[2025-03-20] MEDS: AMOX/CLAVULANATE 875 MG TABLET PO SCH (08:41)
[2025-03-20 16:00] VITALS: BP 122/68; TEMP 98.4; O2SAT 96
[2025-03-20 20:00] VITALS: BP 118/64; TEMP 98.4; O2SAT 96
[2025-03-21 04:00] VITALS: BP 107/66; TEMP 98.2; O2SAT 96
[2025-03-21 07:39] LABS: CALCIUM, SERUM 8.8 mg/dL (8.5-10.1); CREATININE 0.8 mg/dL (0.6-1.3); POTASSIUM 4.1 mmol/L (3.5-5.1)
[2025-03-21 08:00] VITALS: BP 107/69; TEMP 98.1; O2SAT 95
[2025-03-21] MEDS ORDERED: METHOCARBAMOL (750MG) 750 MG TABLET PO PRN (10:30)
[2025-03-21] MEDS: CELECOXIB 100 MG CAPSULE PO SCH (10:42)
[2025-03-21] MEDS: oxyCODONE/APAP (5/325 MG) 1 UDTAB TABLET PO PRN (11:54)
[2025-03-21 16:00] VITALS: BP 118/64; TEMP 97.3; O2SAT 99
[2025-03-21] MEDS: PREGABALIN 25 MG CAPSULE PO SCH (16:41)
[2025-03-21 20:00] VITALS: BP 127/61; TEMP 97.5; O2SAT 97
[2025-03-22] MEDS: HYDROMORPHONE 1 MG/1 ML DISP.SYRIN IV PRN (03:25)
[2025-03-22 04:10] VITALS: BP 103/64; TEMP 97.9; O2SAT 99
[2025-03-22 07:36] VITALS: O2SAT 99
[2025-03-22 07:51] LABS: CALCIUM, SERUM 9.1 mg/dL (8.5-10.1); CREATININE 0.9 mg/dL (0.6-1.3); POTASSIUM 4.2 mmol/L (3.5-5.1)
[2025-03-22 08:00] VITALS: BP 106/70; TEMP 97.8; O2SAT 99
[2025-03-22 16:00] VITALS: BP 115/59; TEMP 98.1; O2SAT 97
[2025-03-22 20:00] VITALS: BP 117/65; TEMP 97.9; O2SAT 98; O2SAT 99
[2025-03-23 04:00] VITALS: BP 115/62; TEMP 97.9; O2SAT 98
[2025-03-23 07:49] LABS: CALCIUM, SERUM 9.2 mg/dL (8.5-10.1); POTASSIUM 4.4 mmol/L (3.5-5.1)
[2025-03-23 08:00] VITALS: BP 117/72; TEMP 98.2; O2SAT 97
[2025-03-23 16:00] VITALS: BP 108/59; TEMP 97.9; O2SAT 97
[2025-03-23 20:00] VITALS: BP 117/72; TEMP 97.9; O2SAT 100
[2025-03-24 04:00] VITALS: BP 112/72; TEMP 98.2; O2SAT 96
[2025-03-24 07:17] VITALS: O2SAT 98
[2025-03-24 08:00] VITALS: BP 117/72; TEMP 97.9; O2SAT 100
[2025-03-24] MEDS: PROSOURCE / PROSTAT (PYXIS) 30 ML UDC PO SCH (09:58)
[2025-03-24 16:00] VITALS: BP 119/73; TEMP 97.9; O2SAT 100
[2025-03-24 20:00] VITALS: BP 117/72; TEMP 98.1; O2SAT 98
[2025-03-25 04:00] VITALS: BP 101/68; TEMP 98.1; O2SAT 97
[2025-03-25 08:00] VITALS: BP 105/72; TEMP 98.2; O2SAT 98
[2025-03-25] MEDS ORDERED: CELE100C PO (10:05)
[2025-03-25] MEDS ORDERED: PREG25CA PO (10:06)
[2025-03-25] MEDS ORDERED: OXYC-128 PO (10:18)
== END 2025-03-25 11:05 | disposition home health service (06) | DRG 853 ==
LOC: ER 12:38 → MEDSG1 15:19 → ICU 03-12 01:23 → MED 03-13 18:17 → TELE 03-14 02:19 → TELE1 03-14 11:22 → MEDSG1 03-16 09:33
PROVIDERS: ADMIT Nurse Practitioner Acute Care; ATTEND Nurse Practitioner Acute Care
PROC: 0DBU0ZZ Excision of Omentum, Open Approach (ICD-10-PCS; 2025-03-11)
PROC: 0DTF0ZZ Resection of Right Large Intestine, Open Approach (ICD-10-PCS; principal; 2025-03-11 21:30)
PROC: 0DU Gastrointestinal System, Supplement (ICD-10-PCS; 2025-03-12)
PROC: 05HB33Z Insertion of Infusion Device into Right Basilic Vein, Percutaneous Approach (ICD-10-PCS; 2025-03-15)
DX: A41.9 Sepsis, unspecified organism (principal); J96.01 Acute respiratory failure with hypoxia; N17.0 Acute kidney failure with tubular necrosis; K35.32 Acute appendicitis with perforation, localized peritonitis, and gangrene, without abscess; E87.1 Hypo-osmolality and hyponatremia; J98.11 Atelectasis; E66.9 Obesity, unspecified; R65.20 Severe sepsis without septic shock; E83.39 Other disorders of phosphorus metabolism; E86.1 Hypovolemia; R73.9 Hyperglycemia, unspecified; E80.6 Other disorders of bilirubin metabolism; K66.0 Peritoneal adhesions (postprocedural) (postinfection); M89.8X9 Other specified disorders of bone, unspecified site; F10.90 Alcohol use, unspecified, uncomplicated; Y90.9 Presence of alcohol in blood, level not specified; E86.9 Volume depletion, unspecified; K76.0 Fatty (change of) liver, not elsewhere classified; E87.6 Hypokalemia; Z68.32 Body mass index [BMI] 32.0-32.9, adult
CPT/HCPCS: 36415; 71045-TC; 74150-TC; 74170-TC; 76770-TC; 80048-TC; 80053-TC; 80076-TC; 80202-TC; 81001; 82550-TC; 82553; 82570-TC; 82962-TC; 83690-TC; 83735-TC; 83970; 84100-TC; 84155; 84165; 84300-TC; 85025-TC; 85730-TC; 86850-TC; 88305-TC; 88309-TC; 94761-TC; 94799-TC; 97110-TC; 97116-TC; 97530-TC; A4216; A4223; A9563; G0378; J0690; J1171; J1200; J1450; J1650; J1815; J1885; J2060; J2185; J2250; J2270; J2405; J2470; J2543; J2704; J2765; J3010; J3370; J3371; J3480; J3490; J7030; J7040; J7042; J7050; J7060; J7120; Q9967